=== PATIENT | male | born 1975 | race Caucasian/White ===

== ENCOUNTER 2018-07-30 07:59 | Day surgery (SDC) | payer OTHER ==
[2018-07-30] MEDS ORDERED: LR 1,000 ML IV ONE (08:21)
--- NOTE | 2018-07-30 09:00 | PDANEPAE ---
ANE History of Present Illness here for colonoscopy ANE Past Medical History - Cardiovascular History Hx Hypertension: No Hx Arrhythmias: No Hx Chest Pain: No Hx Coronary Artery / Peripheral Vascular Disease: No Hx CHF / Valvular Disease: No Hx Palpitations: No Cardiovascular History Comment: MILD IRREG BEAT IN PAST - Pulmonary History Hx COPD: No Hx Asthma/Reactive Airway Disease: No Hx Recent Upper Respiratory Infection: No Hx Oxygen in Use at Home: No Hx Sleep Apnea: No Sleep Apnea Screening Result - Last Documented: Negative - Neurologic History Hx Cerebrovascular Accident: No Hx Seizures: No Hx Dementia: No Neurologic History Comment: A FEW MIGRAINES W/AURA 3-4 YRS AGO - Endocrine History Hx Diabetes: No - Renal History Hx Renal Disorders: No - Liver History Hx Hepatic Disorders: No - Neurological & Psychiatric Hx Hx Neurological and Psychiatric Disorders: Yes Neurological / Psychiatric History Comment: anxiety - Cancer History Hx Cancer: No - Congenital Disorder History Hx Congenital Disorders: No - GI History Hx Gastrointestinal Disorders: Yes Gastrointestinal History Comment: hemorrhoids - Other Health History Other Health History: none - Chronic Pain History Chronic Pain: No - Surgical History Prior Surgeries: Right clavicle repair 04/2018. DENTAL SURG. VASECTOMY ANE Review of Systems Review of systems is: negative Review of Systems: - Exercise capacity Exercise capacity: >=4 METS METS (RN): 6 METS ANE Patient History - Allergies Allergies/Adverse Reactions: No Known Allergies Allergy (Verified 07/13/18 17:18) - Home Medications Home medications: home medication list seen and reviewed Home Medications: Advil 04/12/18 [Last Taken 07/23/18] Multivitamin (*) 04/12/18 [Last Taken 07/29/18] Zoloft 100mg (*) 04/12/18 [Last Taken 07/29/18] - NPO status NPO Status: no food or drink >8 hours NPO Since - Liquids (Date): 07/30/18 NPO Since - Liquids (Time): 06:00 NPO Since - Solids (Date): 07/29/18 NPO Since - Solids (Time): 08:30 - Smoking Hx Smoking Status: Never smoked - Family Anes Hx Family Hx Anesthesia Complications: NEG ANE Labs/Vital Signs - Vital Signs Vital Signs: reviewed preoperatively; see RN documention for details Blood Pressure: 122/73 Heart Rate: 53 Respiratory Rate: 16 O2 Sat (%): 96 Height: 177.8 cm Weight: 77.111 kg ANE Physical Exam - Airway Neck exam: FROM Mallampati Score: Class 1 - Pulmonary Pulmonary: no respiratory distress - Cardiovascular Cardiovascular: regular rate and rhythym - ASA Status ASA Status: II ANE Anesthesia Plan Anesthesia Plan: GA with mask
[2018-07-30] MEDS ORDERED: PROMETHAZINE HCL 25 MG/ML INJ IVP PRN (09:06)
[2018-07-30] MEDS ORDERED: ALBUTEROL 3 ML DEYVIAL IH PRN (09:06)
[2018-07-30] MEDS ORDERED: LR 500 ML IV PRN (09:06)
[2018-07-30] MEDS ORDERED: ONDANSETRON 4 MG/2 ML VIAL IVP PRN (09:06)
[2018-07-30] MEDS ORDERED: NALOXONE HCL 0.4 MG/ML INJ IVP PRN (09:06)
[2018-07-30] MEDS ORDERED: fentaNYL 100 MCG/2 ML INJ IVP PRN (09:06)
--- NOTE | 2018-07-30 09:25 | PDHPUP ---
History & Physical Update H&P update statement: This history and physical update is based on an assessment of the patient which was completed after admission or registration (within 24 hours), but prior to the surgery/procedure. H&P update: H&P reviewed & patient examined, no change in patient's condition since H&P completed
[2018-07-30] MEDS ORDERED: PROPOFOL/EMULSION 500 MG/50 ML BOTTLE IV ONE (09:31)
[2018-07-30] MEDS ORDERED: PROPOFOL 200 MG/20 ML VIAL ONE (09:50)
--- NOTE | 2018-07-30 10:03 | GIREPORT ---
[facility] Surgical Services - Endoscopy Department Patient Name: CHELY ÁLVAREZ Procedure Date: 07/30/2018 9:28 AM Patient Type: Outpatient Attending / ER Physician: Carlos Pichardo MD Procedure: Colonoscopy Indications: Rectal bleeding Providers: Carlos Pichardo MD Medicines: Propofol per Anesthesia Complications: No immediate complications. Description of Procedure: After obtaining informed consent, the scope was passed under direct vis ion. Throughout the procedure, the patient's blood pressure, pulse, and oxyg en saturations were monitored continuously. The Colonoscope with irrigatio n channel was introduced through the anus and advanced to the terminal il eum. The colonoscopy was performed with ease. The quality of the bowel preparation was evaluated using the BBPS ([place] Bowel Preparation Scal e) with scores of: Right Colon = 3, Transverse Colon = 3 and Left Colon = 3 (entire mucosa seen well with no residual staining, small fragments of stool or opaque liquid). The total BBPS score equals 9. Findings: The perianal examination was normal. Non-bleeding non-prolapsed internal hemorrhoids were found during retroflexion. The hemorrhoids were Grade I (internal hemorrhoids that d o not prolapse). A 5 mm, non-bleeding polyp was found in the cecum. The polyp was semi-pedunculated. The polyp was removed with a cold snare. Resection a nd retrieval were complete. Localized mild inflammation was found in the rectum. Biopsies were take n with a cold forceps for histology. Estimated Blood Loss: Estimated blood loss: none. Post Op Diagnosis: - Non-bleeding non-prolapsed internal hemorrhoids. - One 5 mm, non-bleeding polyp in the cecum, removed with a cold snare. Resected and retrieved. - Localized mild inflammation was found in the rectum secondary to proctitis. Biopsied. Recommendation: - Await pathology results. - Patient has a contact number available for emergencies. The signs and symptoms of potential delayed complications were discussed with the pat ient. Return to normal activities tomorrow. Written discharge instructions we re provided to the patient. Attending Participation: I personally performed the entire procedure. Kylee Gonzalez Carlos Pichardo MD 07/30/2018 10:03:25 AM Number of Addenda: 0 Note Initiated On: 07/30/2018 9:28 AM Total Procedure Duration Time 0 hours 11 minutes 22 seconds [email or web address]
[2018-07-30 11:30] VITALS: BP 102/72
--- NOTE | 2018-07-30 15:16 | POSTANESTH ---
Post Anesthetic Evaluation Cardiovascular Status: Normal, Stable Respiratory Status: Normal, Stable Level of Consciousness/Mental Status: Can Participate in Eval Pain Control: Adequate, Prn Tx Ordered Nausea/Vomiting Control: Adequate, Prn Tx Ordered Complications Possibly Related to Anesthesia: None Noted
== END 2018-07-30 11:13 | disposition home or self-care (01) ==
LOC: FSGY 07:59
PROVIDERS: ATTEND Surgery
DX: K64.0 First degree hemorrhoids (principal); K63.5 Polyp of colon
CPT/HCPCS: J2704